=== PATIENT | female | born 1970 | race Caucasian/White ===

== ENCOUNTER 2021-02-02 19:17 | Emergency (ER) | payer SELFPAY ==
[2021-02-02] MEDS ORDERED: TETANUS/DIPHTHERIA/PERTUSSIS 0.5 ML SYRINGE IM ONE (19:27)
[2021-02-02 19:30] VITALS: BP 143/80
[2021-02-02] MEDS ORDERED: BACITRACIN ZINC OINT 1 PACKET TOP STA (19:32)
--- NOTE | 2021-02-02 20:00 | XRAY Report ---
PROCEDURE: Foot 2 View RT INDICATIONS: r/o foreign body. stepped on nail TECHNIQUE: 2 views of the foot were acquired. COMPARISON: None FINDINGS: Bones: No fractures or dislocations. No suspicious bony lesions. Soft tissues: No tibiotalar joint effusion. Achilles tendon appears normal. IMPRESSION: Fracture or foreign body is not seen. Reviewed by: Mikey Herrera MD on 02/02/2021 7:59 PM PDT Approved by: Mikey Herrera MD on 02/02/2021 7:59 PM PDT Station ID: [id number]
--- NOTE | 2021-02-02 20:10 | ED Physician Documentation ---
History of Present Illness - Stated complaint Stated Complaint: STEPPED ON NAIL/RIGHT FOOT - Chief complaint Chief Complaint: Ext Problem - History obtained from History obtained from: Patient - Additonal information Additional information: 50-year-old woman with past medical history of adrenal insufficiency on steroid therapy [place]. Patient's last tetanus is more than 10 years ago. She is no longer bleeding but and unable to bear weight easily. Review of Systems Skin: reports: Other (puncture wound) Musculoskeletal: reports: Extremity pain PD PAST MEDICAL HISTORY - Past Medical History Past Medical History: Yes Cardiovascular: None Respiratory: None Neuro: None Endocrine/Autoimmune: Other GI: None PRESSURE WELDER: None : None HEENT: None Psych: None Musculoskeletal: None Derm: None Other Past Medical History: HYPOPITUITARY SYNDROME...ADRENAL INSUFFICIENCY SYNDROME... - Past Surgical History Past Surgical History: Yes General: Cholecystectomy, Appendectomy - Present Medications Home Medications: Ambulatory Orders Medication Instructions Recorded Confirmed Ciprofloxacin HCl 750 mg PO BID #14 tablet 02/02/21 Hydrocortisone 20 mg PO DAILY 02/02/21 02/02/21 Levothyroxine Sodium 15 mcg PO DAILY 02/02/21 02/02/21 [Levothyroxine] - Allergies Allergies/Adverse Reactions: Allergies Allergy/AdvReac Type Severity Reaction Status Date / Time No Known Drug Allergies Allergy Verified 02/02/21 19:48 - Social History Does the pt smoke?: Yes Smoking Status: Current every day smoker Does the pt drink ETOH?: Yes Does the pt have substance abuse?: No - Immunizations Immunizations are current?: No - POLST Patient has POLST: No PD ED PE NORMAL - Vitals Vital signs reviewed: Yes - General General: Alert and oriented X 3, No acute distress, Well developed/nourished - HEENT HEENT: Atraumatic, PERRL, EOMI - Extremities Extremities: Other (Puncture wound to right heel without visible foreign body) Results - Vitals Vitals: Vital Signs - 24 hr 02/02/21 02/02/21 02/02/21 19:28 19:35 19:52 Temperature 36.4 C L Heart Rate 70 Respiratory 16 16 16 Rate Blood Pressure 143/80 H O2 Saturation 97 Oxygen O2 Source Room air PD MEDICAL DECISION MAKING - ED course ED course: 50-year-old woman presented with puncture wound to the right foot. Because of her immunocompromised status I am going to prescribe antibiotics. Tetanus was updated. Strict return precautions were given. She will follow up with her primary doctor Departure - Departure Disposition: 01 Home, Self Care Clinical Impression: Heel lesion Condition: Good Instructions: ED Wound Puncture Foot Prescriptions: Ciprofloxacin HCl 750 mg PO BID #14 tablet Comments: You are seen in the emergency department for a puncture wound from a nail into your foot. Your x-ray did not show any foreign body. Your tetanus was updated and should be good for 10 years. Make sure you take your antibiotics prescribed and monitor for any signs of infection. Keep the bandage clean and dry for 24 hours. Elevate your foot to promote healing process. Take ibuprofen every 6 hours as needed for pain.Return to the emergency department you have any new or worsening symptoms or other concerns.
== END 2021-02-02 20:18 | disposition home or self-care (01) ==
LOC: ED 19:17
DX: S91.331A Puncture wound without foreign body, right foot, initial encounter (principal); W45.0XXA Nail entering through skin, initial encounter; Y93.01 Activity, walking, marching and hiking; Y92.832 Beach as the place of occurrence of the external cause; Z23 Encounter for immunization; F17.200 Nicotine dependence, unspecified, uncomplicated
CPT/HCPCS: 73620; 90471; 90715; 99281; 99283; A9270